=== PATIENT | female | born 1990 | race American Indian/Alaskan Native ===

== ENCOUNTER 2018-11-30 10:26 | Outpatient (CLI) | payer MEDICAID ==
[2018-11-30 11:36] LABS: Bacteria,Urine 1+ /HPF (Negative); Bilirubin,Urine NEG (Negative); Blood,Urine NEG (Negative); Color,Urine Yellow (Yellow); Mucus,Urine FEW /HPF; Protein,Urine <15 mg/dL mg/dL (Negative)
[2018-11-30 12:09] VITALS: BP 115/72
[2018-11-30 12:21] LABS: Alanine Aminotransferase 6 units/L (7-56); Uric Acid 2.4 mg/dL (3.5-7.6)
[2018-11-30 12:25] LABS: Hematocrit 32.7 % (30.3-42.9); Hemoglobin 10.4 gm/dl (10.1-14.3); Mean Corpuscular HGB Conc 32 % (30-34); Mean Corpuscular Volume 76 fl (79-97); Platelet Count 237 K/mm3 (140-440); Red Cell Distribution Width 17.3 % (13.2-15.2)
== END 2018-11-30 13:14 | disposition home or self-care (01) ==
LOC: TRG 10:26
PROVIDERS: ATTEND Obstetrics & Gynecology
DX: O47.9 False labor, unspecified (principal)
CPT/HCPCS: 36415; 59025; 81001; 82565; 83615; 84450; 84460; 84550; 85027; 87086